=== PATIENT | female | born 1985 | race American Indian/Alaskan Native ===

== ENCOUNTER 2017-11-16 14:58 | Emergency (ER) | payer MEDICAID ==
--- NOTE | 2017-11-16 17:09 | Emergency Department Report ---
ED General Adult HPI - General Chief complaint: Medical Clearance Stated complaint: BODY PAIN/ABDOMINAL Time Seen by Provider: 11/16/17 16:47 Source: patient Mode of arrival: Ambulatory Limitations: No Limitations - History of Present Illness Initial comments: Patient is a 32-year-old black female who is 2 weeks status post plastic surgery. [place] she has a [place] but lift where she had lateral flexion on her stomach that was present for and subsequently injected into her buttock. Patient states none of her wounds have any redness or pus around him but she is concerned about how swollen she is. Patient has a great deal of swelling in the abdomen around the waist. Patient' s denies any fever nausea vomiting at this time. - Related Data Previous Rx's Medication Instructions Recorded Last Taken Type Docusate Sodium [Colace] 100 mg PO BID #30 capsule 11/16/17 Unknown Rx Ibuprofen [Motrin] 800 mg PO Q8HR PRN #20 tablet 11/16/17 Unknown Rx oxyCODONE /ACETAMINOPHEN [Percocet 1 tab PO Q4HR #15 tab 11/16/17 Unknown Rx 5/325] Allergies Allergy/AdvReac Type Severity Reaction Status Date / Time No Known Allergies Allergy Unverified 11/16/17 15:08 ED Review of Systems ROS: Stated complaint: BODY PAIN/ABDOMINAL Other details as noted in HPI Comment: All other systems reviewed and negative ED Past Medical Hx - Past Medical History Previous Medical History?: No - Surgical History Additional Surgical History: ANGOLAN BUT LIFT - Social History Smoking Status: Never Smoker Substance Use Type: None - Medications Home Medications: Home Medications Medication Instructions Recorded Confirmed Last Taken Type Docusate Sodium [Colace] 100 mg PO BID #30 capsule 11/16/17 Unknown Rx Ibuprofen [Motrin] 800 mg PO Q8HR PRN #20 tablet 11/16/17 Unknown Rx oxyCODONE /ACETAMINOPHEN [Percocet 1 tab PO Q4HR #15 tab 11/16/17 Unknown Rx 5/325] ED Physical Exam - General Limitations: No Limitations General appearance: alert, in no apparent distress - Head Head exam: Present: atraumatic, normocephalic - Eye Eye exam: Present: normal appearance - ENT ENT exam: Present: mucous membranes moist - Neck Neck exam: Present: normal inspection - Respiratory Respiratory exam: Present: normal lung sounds bilaterally. Absent: respiratory distress, wheezes, rales, rhonchi - Cardiovascular Cardiovascular Exam: Present: regular rate, normal rhythm. Absent: systolic murmur, diastolic murmur, rubs, gallop - GI/Abdominal GI/Abdominal exam: Present: soft, tenderness (patient's abdomen has generalized tenderness. Patient did take a loose her compression garment. 2000 abdomen are symmetrical. There is no warmth or erythema. She does have some edema in this area.), normal bowel sounds - Extremities Exam Extremities exam: Present: normal inspection - Back Exam Back exam: Present: normal inspection - Neurological Exam Neurological exam: Present: alert, oriented X3 - Psychiatric Psychiatric exam: Present: normal affect, normal mood - Skin Skin exam: Present: warm, dry, intact, normal color. Absent: rash ED Course Vital Signs 11/16/17 15:09 Temperature 98.3 F Pulse Rate 110 H Respiratory 18 Rate Blood Pressure 140/77 O2 Sat by Pulse 97 Oximetry ED Medical Decision Making - Medical Decision Making Abdomen long conversation with the patient regarding the physiology of healing after plastic surgery and liposuction. Patient was concerned that she didn't have any drains however she did not have any long lacerations of that would have needed to be drained all of her incisions are laparoscopic sized incisions. Patient also was concerned that she has not had any fluid coming out of any of her wounds. Patient is on the impression that the edema would have to leave through these wounds. Patient was given education that with a compression garment she will eventually have her swelling decreased. Patient does not have any indication of any infections and she is continuing to take her antibiotics as prescribed. Patient states the tramadol that she was given for pain does not seem to be helping. Will switch the patient from tramadol to Percocet and give her Colace. Critical care attestation.: If time is entered above; I have spent that time in minutes in the direct care of this critically ill patient, excluding procedure time. ED Disposition Clinical Impression: Edema Qualifiers: Edema type: unspecified Qualified Code(s): R60.9 - Edema, unspecified Disposition: DC-01 TO HOME OR SELFCARE Is pt being admited?: No Does the pt Need Aspirin: No Condition: Stable Prescriptions: Docusate Sodium [Colace] 100 mg PO BID #30 capsule Ibuprofen [Motrin] 800 mg PO Q8HR PRN #20 tablet PRN Reason: Pain oxyCODONE /ACETAMINOPHEN [Percocet 5/325] 1 tab PO Q4HR #15 tab Referrals: PRIMARY CARE, [Primary Care Provider] - 3-5 Days
[2017-11-16 19:13] VITALS: BP 140/70
== END 2017-11-16 19:12 | disposition home or self-care (01) ==
LOC: ED 14:58
DX: R60.9 Edema, unspecified (principal)
CPT/HCPCS: 99282